=== PATIENT | male | born 1975 | race Caucasian/White ===

== ENCOUNTER 2025-07-20 07:47 | Outpatient (CLI) | payer BC, SELFPAY ==
--- NOTE | 2025-07-20 08:15 | CRLHL7_ITS ---
For Patients: As a result of the Century Cures Act, medical imaging exams and procedure reports are released immediately into your electronic medical record. You may view this report before your referring provider. If you have questions, please contact your health care provider. INDICATION: Radiculopathy. COMPARISON: 05/25/2025. TECHNIQUE: Sagittal T1, T2, and STIR sequences. Axial T2/gradient sequences. FINDINGS: Straightening of the normal cervical lordosis which may be secondary to patient position or muscle spasm. Normal vertebral body facet alignment. No fractures. No vertebral body loss of height. No spondylolisthesis. No ligamentous injury. Normal marrow signal. No suspicious osseous lesions. Normal cord signal. No intradural mass or lesion. C1-2: No spinal canal narrowing. C2-3: No spinal canal neural foraminal narrowing. C3-4: No spinal canal or neural foraminal narrowing. C4-5: No spinal canal or neural foraminal narrowing. C5-6: Disc generation and posterior disc bulge or disc osteophyte complex. Tiny central annular fissure. Mild narrowing of the spinal canal. Uncovertebral joint hypertrophy results in mild narrowing of the left neural foramen. No narrowing of the right neural foramen. C6-7: Disc generation broad-based disc osteophyte complex. No narrowing of the spinal canal. Moderate narrowing of the right neural foramen. No narrowing of left neural foramen. C7-T1: Disc degeneration shallow left parasagittal disc bulge or disc osteophyte complex. No narrowing of the spinal canal. No neural foraminal narrowing. No spinal canal or neural foraminal narrowing in the visualized upper thoracic spine. IMPRESSION: 1. Straightening of the normal cervical lordosis. 2. Otherwise, normal alignment. No fractures 3. Normal cord signal 4. At C5-6, posterior disc bulge or disc osteophyte complex. Tiny central annular fissure. Mild narrowing of the spinal canal and left neural foramen 5. At C6-7, moderate narrowing of the right neural foramen. Dictated by Star Boateng MD @ 07/21/2025 1:20:06 PM (Electronically Signed)
== END 2025-07-20 07:48 | disposition home or self-care (01) ==
LOC: MRI 07:48
PROVIDERS: PCP Family Medicine; Visit Provider Physician Assistant
DX: M54.12 Radiculopathy, cervical region (principal); M50.222 Other cervical disc displacement at C5-C6 level; M50.223 Other cervical disc displacement at C6-C7 level
CPT/HCPCS: 72141

== ENCOUNTER 2025-08-03 06:59 | Outpatient (CLI) | payer BC, SELFPAY | END 2025-08-03 07:00 | disposition home or self-care (01) | LOC: INJ CL 07:00 | PROVIDERS: PCP Family Medicine; Visit Provider Nurse Anesthetist, Certified Registered | DX: M54.2 Cervicalgia (principal); G89.29 Other chronic pain | CPT/HCPCS: 64479; J1100; Q9966 ==